=== PATIENT | female | born 1980 | race Caucasian/White ===

== ENCOUNTER 2020-09-20 09:50 | Emergency (ER) | payer BC ==
--- NOTE | 2020-09-20 10:46 | EDM.PDOC ---
ED HPI GENERAL MEDICAL PROBLEM - General Chief Complaint: Back Pain or Injury Stated Complaint: back pain Time Seen by Provider: 09/20/20 10:25 Source of Information: Reports: Patient History Limitations: Reports: No Limitations - History of Present Illness INITIAL COMMENTS - FREE TEXT/NARRATIVE: Gwen is a 40 year old female who presents to ER with complaints of back pain. first started noting pain on Monday and has progressively gotten worse. Was up at 0400 to the bathroom and ambulated well. Again woke up at 0600 and it took 15 minutes to get out of bed. Had gone outside to the garage with her to have a cigarette and was having significant pain. He was supporting her as they were returning back in to the house and she "passed out". She recalls not feeling well, getting nauseated and lightheaded and then woke up on the floor. Did hit her head on the floor. Has jaw discomfort more than anything. Relates that only has ever fainted one other time and that was due to increased stress. Had a scan done and they did note "a spot in my head but they felt it was nothing". Denies any chest pain. No shortness of breath. No further nausea. Did have a loose stool after the syncopal episode but relates that to eating "a bunch of cherries, beans and peas last night. No injury prior to the back pain starting. Does feel her legs are weak from this. No urinary complaints. Onset: Gradual Duration: Day(s): Location: Reports: Head, Back Quality: Reports: Ache Severity: Mild (with rest, much worse with movement) Improves with: Reports: Rest Worsens with: Reports: Movement Associated Symptoms: Reports: Nausea/Vomiting, Syncope. Denies: Confusion, Chest Pain, Diaphoresis, Headaches, Malaise, Shortness of Breath Lower Back Pain Score (Numeric/FACES): 2 - Related Data Allergies Allergy/AdvReac Type Severity Reaction Status Date / Time No Known Allergies Allergy Verified 09/20/20 09:56 Home Meds: Home Meds . 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 Neurological History: Reports: None Psychiatric History: Reports: None Endocrine/Metabolic History: Reports: None Hematologic History: Reports: None Immunologic History: Reports: None Oncologic (Cancer) History: Reports: None Dermatologic History: Reports: None - Infectious Disease History Infectious Disease History: Reports: None - Past Surgical History Head Surgeries/Procedures: Reports: None HEENT Surgical History: Reports: None Cardiovascular Surgical History: Reports: None Musculoskeletal Surgical History: Reports: Shoulder Surgery Oncologic Surgical History: Reports: None Social & Family History - Family History Family Medical History: No Pertinent Family History - Tobacco Use Tobacco Use Status *Q: Current Every Day Tobacco User Years of Tobacco use: 25 Packs/Tins Daily: 0.5 - Caffeine Use Caffeine Use: Reports: Coffee - Recreational Drug Use Recreational Drug Use: No ED ROS GENERAL - Review of Systems Review Of Systems: See Below Constitutional: Reports: Weakness. Denies: Fever, Chills, Malaise, Fatigue HEENT: Denies: Ear Pain, Rhinitis, Sinus Problem, Throat Pain, Vertigo Respiratory: Denies: Shortness of Breath, Cough Cardiovascular: Reports: Lightheadedness. Denies: Chest Pain, Edema Endocrine: Denies: Fatigue GI/Abdominal: Reports: Diarrhea, Nausea. Denies: Abdominal Pain, Vomiting : Reports: No Symptoms Musculoskeletal: Reports: Back Pain Skin: Reports: No Symptoms Neurological: Reports: Weakness - Physical Exam Exam: See Below Exam Limited By: No Limitations General Appearance: Alert, WD/WN, No Apparent Distress Ears: Normal External Exam, Normal TMs Nose: Normal Inspection, Normal Mucosa, No Blood Throat/Mouth: Normal Inspection, Normal Oropharynx Head Exam: Normocephalic Neck: Normal Inspection, Supple, Non-Tender Respiratory/Chest: No Respiratory Distress, Lungs Clear, Normal Breath Sounds Cardiovascular: Regular Rate, Rhythm GI/Abdominal: Normal Bowel Sounds, Soft, Non-Tender Neuro Exam (Abbreviated): Alert, Oriented, CN II-XII Intact Back Exam: Decreased Range of Motion, Muscle Spasm, Paraspinal Tenderness Extremities: Normal Inspection, No Pedal Edema Skin Exam: Warm, Dry Course - Vital Signs Last Recorded V/S: Last Vital Signs Temp 98.2 F 09/20/20 09:56 Pulse 70 09/20/20 09:56 Resp 17 09/20/20 09:56 BP 121/67 09/20/20 09:56 Pulse Ox 99 09/20/20 09:56 - Orders/Labs/Meds Orders: Active Orders 24 hr Category Date Time Status EKG Documentation Completion [RC] STAT Care 09/20/20 10:33 Active Head wo Cont [CT] Stat Exams 09/20/20 10:35 Taken Labs: Laboratory Tests 09/20/20 09/20/20 Range/Units 10:45 10:45 WBC 10.2 (4.0-11.0) 10^3/uL RBC 4.68 (4.00-5.50) x10^6/uL Hgb 13.9 (12.0-16.0) g/dL Hct 41.6 (37.0-47.0) % MCV 88.9 (83.0-97.0) fL MCH 29.7 (27.0-32.0) pg MCHC 33.4 (32.0-36.0) g/dL RDW Coeff of Jean-Paul 13.0 (11.0-15.0) % Plt Count 253 (150-400) 10^3/uL Immature Gran % (Auto) 0.4 (0.0-4.9) % Neut % (Auto) 63.9 (41-71) % Lymph % (Auto) 28.0 (24-44) % [place] % (Auto) 4.5 (0-10) % Eos % (Auto) 2.5 (0-6) % Baso % (Auto) 0.7 (0-1) % Neut # (Auto) 6.54 (1.80-8.00) x10^3/uL Lymph # (Auto) 2.86 (0.60-5.00) 10^3/uL [place] # (Auto) 0.46 (0.00-1.50) 10^3/uL Eos # (Auto) 0.26 (0.00-1.50) 10^3/uL Baso # (Auto) 0.07 (0.00-0.50) 10^3/uL Immature Gran # (Auto) 0.04 (0.00-0.49) 10^3/uL Sodium 140 (136-145) mEq/L Potassium 4.0 (3.5-5.0) mEq/L Chloride 104 (98-106) mEq/L Carbon Dioxide 27 (21-32) mmol/L BUN 12 (7-18) mg/dL Creatinine 0.7 (0.6-1.0) mg/dL Est Cr Clr Drug Dosing 91.33 mL/min Estimated GFR (MDRD) > 60 (>=60) mL/min Glucose 95 (75-99) mg/dL Calcium 8.9 (8.4-10.1) mg/dL Total Bilirubin 0.3 (0.0-1.0) mg/dL AST 11 L (15-37) U/L ALT 16 (12-78) U/L Alkaline Phosphatase 69 (46-116) U/L Lactate Dehydrogenase 173 (100-190) U/L Creatine Kinase 49 (21-215) U/L Troponin I < 0.017 (0.00-0.06) ng/mL Total Protein 7.6 (6.4-8.2) g/dL Albumin 4.2 (3.4-5.0) g/dL Meds: Medications Discontinued Medications Generic Name Dose Route Start Last Admin Trade Name Freq PRN Reason Stop Dose Admin Cyclobenzaprine HCl 1 packet 09/20/20 11:17 Take Home: Cyclobenzaprine 10 Mg Tab, 4 Tab Pack PO 09/20/20 11:18 ONETIME ONE Ketorolac Tromethamine 60 mg 09/20/20 11:17 Ketorolac 60 Mg/2 Ml Sdv IM 09/20/20 11:18 ONETIME ONE Ketorolac Tromethamine 1 packet 09/20/20 11:17 Take Home: Ketorolac 10 Mg Tab, 4 Tab Pack PO 09/20/20 11:18 ONETIME ONE - Re-Assessments/Exams Free Text/Narrative Re-Assessment/Exam: 09/20/20 11:[address] are negative. Will give Norflex and Toradol. Have her follow up with PT tomorrow. Departure - Departure Time of Disposition: 11:22 Disposition: Home, Self-Care 01 Condition: Good Clinical Impression: Low back pain, Syncope - Discharge Information *PRESCRIPTION DRUG MONITORING PROGRAM REVIEWED*: No *COPY OF PRESCRIPTION DRUG MONITORING REPORT IN PATIENT ELOISE: No Instructions: Syncope, [id number], Acute Back Pain, Adult Referrals: Tisha Rodriges JUNIOR ELECTRICAL ENGINEER [Primary Care Provider] - Forms: ED Department Discharge Additional Instructions: 1. Rest 2. Push fluids 3. Heating pad to back if able 4. Toradol 10 mg every 6 hours for pain/inflammation 5. Flexeril 10 mg every 8 hours for muscle spasms 6. Follow up with PT tomorrow 7. Return to clinic if persisting pain or concern Sepsis Event Note (ED) - Evaluation Sepsis Screening Result: No Definite Risk - Focused Exam Vital Signs: Vital Signs Temp Pulse Resp BP Pulse Ox 09/20/20 09:56 98.2 F 70 17 121/67 99 - My Orders Last 24 Hours: My Active Orders 09/20/20 10:33 EKG Documentation Completion [RC] STAT 09/20/20 10:35 Head wo Cont [CT] Stat - Assessment/Plan Last 24 Hours: My Active Orders 09/20/20 10:33 EKG Documentation Completion [RC] STAT 09/20/20 10:35 Head wo Cont [CT] Stat
[2020-09-20] MEDS ORDERED: Take Home: Cyclobenzaprine 10 MG Tab, 4 Tab Pack ONE (10:59)
[2020-09-20] MEDS ORDERED: Take Home: Ketorolac 10 MG Tab, 4 Tab Pack ONE (10:59)
[2020-09-20 11:11] LABS: CHLORIDE,CL 104 mEq/L (98-106); SODIUM,NA 140 mEq/L (136-145)
[2020-09-20] MEDS ORDERED: Take Home: Ketorolac 10 MG Tab, 4 Tab Pack PO ONE (11:17)
[2020-09-20] MEDS ORDERED: Take Home: Cyclobenzaprine 10 MG Tab, 4 Tab Pack PO ONE (11:17)
[2020-09-20] MEDS ORDERED: Ketorolac 60 MG/2 ML SDV IM ONE (11:17)
[2020-09-20] MEDS ORDERED: Orphenadrine 60 MG/2 ML Inj IM ONE (11:24)
== END 2020-09-20 11:48 | disposition home or self-care (01) ==
LOC: CC.ED 09:50
DX: M54.5 Low back pain (principal); R55 Syncope and collapse; F17.210 Nicotine dependence, cigarettes, uncomplicated
CPT/HCPCS: 36415; 70450; 80053; 82550; 83615; 84484; 85025; 93005; 96372; 99284; A9270; J1885; J2360